=== PATIENT | male | born 1960 | race Caucasian/White ===

== ENCOUNTER 2022-06-27 14:09 | Outpatient (CLI) | payer OTHER, SELFPAY ==
--- NOTE | ~2022-06-27 | MR_ITS ---
EXAMINATION: MR cervical spine wo con DATE: 06/27/2022 14:49 INDICATION: Bilateral numbness and tingling in the arms and hands. TECHNIQUE: Magnetic resonance imaging (MRI) of the cervical spine was performed without intravenous c ontrast. Sequences included sagittal T2-weighted FSE, sagittal T2-weighted FS FSE, sagittal T1-weight ed FSE, axial MERGE, and axial T2-weighted FSE. COMPARISON: Cervical spine MRI 12/08/2017 FINDINGS: There is 9 degrees dextrocurvature of cervicothoracic spine. Vertebral body heights are nor mal. There is mildly decreased disc height at C5-C6 and C6-C7. The spinal cord signal intensity is no rmal. The following disc levels are specifically discussed: C2-C3: The disc does not extend beyond the endplate margin. There is mild left uncovertebral joint os teoarthritis. There is moderate bilateral facet joint osteoarthritis. There is mild left neural cherry inal stenosis. There is no central canal stenosis. C3-C4: The disc does not extend beyond the endplate margin. There is mild bilateral uncovertebral kendra nt osteoarthritis. There is severe bilateral facet joint osteoarthritis. There is mild bilateral neur al foraminal stenosis. There is no central canal stenosis. C4-C5: The disc is bulging. There is mild bilateral uncovertebral joint osteoarthritis. There is cassi re bilateral facet joint osteoarthritis. There is mild bilateral neural foraminal stenosis. There is no central canal stenosis. C5-C6: The disc is bulging. There is severe bilateral uncovertebral joint osteoarthritis. There is mo derate bilateral facet joint osteoarthritis. There is moderate bilateral neural foraminal stenosis. T here is mild central canal stenosis. C6-C7: The disc is bulging. There is severe bilateral uncovertebral joint osteoarthritis. There is mo derate right and severe left facet joint osteoarthritis. There is mild right and moderate left neural foraminal stenosis. There is mild central canal stenosis. C7-T1: The disc does not extend beyond the endplate margin. There is no uncovertebral joint osteoarth ritis. There is severe bilateral facet joint osteoarthritis. There is mild bilateral neural foraminal stenosis. There is no central canal stenosis. IMPRESSION: 1. Moderate cervical spondylosis, stable from 12/08/2017. Reviewed, dictated and finalized at location A. ENTATIVE MAINTENANCE TECHNICIAN
--- NOTE | ~2022-06-27 | XR_ITS ---
EXAMINATION: XR chest 2V 06/27/2022 14:55 INDICATION: Solitary pulmonary nodule PROCEDURE: 2 view chest COMPARISON: No prior studies for comparison. FINDINGS: The lungs are clear. The cardiomediastinal silhouette is within normal limits. There are no pleural effusions. There is no pneumothorax suspected. IMPRESSION: 1: NO ACUTE CARDIOPULMONARY DISEASE. Reviewed, dictated and finalized at location B. ORICAL ARCHEOLOGIST
== END 2022-06-27 14:10 | disposition home or self-care (01) ==
LOC: ANHIMG 14:12
PROVIDERS: PCP Family Medicine; Visit Provider Physician Assistant Medical
DX: R91.1 Solitary pulmonary nodule (principal); M50.30 Other cervical disc degeneration, unspecified cervical region; M47.22 Other spondylosis with radiculopathy, cervical region
CPT/HCPCS: 71046; 72141

== ENCOUNTER 2023-01-11 10:15 | Emergency (ER) | payer OTHER, SELFPAY ==
[2023-01-11 11:11] VITALS: BP 127/89; PULSE 65; RESP 18; TEMP 36.1; O2SAT 99
--- NOTE | 2023-01-11 11:22 | ED.GENADULT ---
HPI - General Adult General Chief complaint: Upper Respiratory Infection Stated complaint: congestion Time Seen by Provider: 01/11/23 11:23 Source: patient Mode of arrival: ambulatory Limitations: no limitations History of Present Illness HPI narrative: 62-year-old male patient presents to the [facility] with complaints of sinus congestion and facial pain for the past 2-3 days. Patient states symptoms started shortly after mowing grass about 2-3 days ago. Patient states he does have little bit of a runny nose denies any fevers, body aches or chills. Denies any coughing, sore throat or shortness of breath. Patient states he did take some [id number] Mucinex for symptoms. Related Data Allergies Allergy/AdvReac Type Severity Reaction Status Date / Time smallpox vaccine,live Allergy Severe Anaphylaxis Verified 01/11/23 11:05 Penicillins Allergy Unknown Unknown Verified 01/11/23 11:05 Sulfa (Sulfonamide AdvReac Mild Hives Verified 01/11/23 11:06 Antibiotics) Review of Systems Review of Systems: CONSTITUTIONAL: Denies fever, chills, or sweats. EYES: Denies visual changes, redness, or discharge. ENT: Positive rhinorrhea, congestion, denies sore throat, or otalgia. positive facial pain CARDIOVASCULAR: Denies chest pain, palpitations, or edema. RESPIRATORY: Denies cough or dyspnea. GASTROINTESTINAL: Denies abdominal pain, nausea, vomiting, or diarrhea. GENITOURINARY: Denies dysuria or hematuria. SKIN: Denies rash or itching. MUSCULOSKELETAL: Denies back pain, joint pain, or myalgia. NEUROLOGIC: Denies headache, numbness, or weakness. PSYCHIATRIC: Denies anxiety or depression. [facility] Past Medical History Medical History Allergies Arthritis Bilateral knee pain Family history of colon cancer Hyperlipidemia Hyponatremia Insect bite Left knee DJD Low blood pressure Low magnesium level Lung nodule Right knee DJD Right knee pain Weight gain Surgical History Surgical History Cyst back H/O colonoscopy History of cholecystectomy Family History Family History Father Heart disease Cerebrovascular accident Carcinoma of colon Mother Depression Heart disease Grandparent Liver cancer Social History Social History Smoking status: Former smoker Second hand tobacco smoke exposure: No Smoking end date: 05/04/07 Alcohol intake: current Drinks per week: 12 Alcohol use details: beer, per month. Substance use: never Substance use type: does not use Lack of Transportation: No Lack of Food: Never True Current Housing: I Have Housing Concerned About Future Housing: No Difficulty Paying Gas/Electric Bills: No Difficulty Paying for Meds: No Currently Unemployed: No Education: Trade/Vocational Certificate Difficulty w/ Childcare or Family Care: No Living arrangements: with family Occupation/Education: occupation Additional occupation/education comments: [employer] Gender identity (if verbalized by the patient): Male Sexual Orientation (if Verbalized by the Patient): Straight or Heterosexual Spiritual care concerns: No Agree to blood products: Yes Comments At the time of my signature I agree with nursing past medical history, surgical, social, and family history. There is no relevant family history pertinent to the presenting complaint. Exam Narrative: GENERAL: Well-appearing, well-nourished, and in no acute distress. HEAD: Normocephalic, atraumatic. EYES: PERRLA and EOMI. ENT: Nares with erythema edema noted bilaterally, no rhinorrhea or epistaxis. Mucous membranes moist. posterior pharynx with no erythema, tonsillar enlargement, exudates or lesions present. Bilateral TMs are clear no erythema provides the canal. NECK: Supple. No lymphadenopat
== END 2023-01-11 11:45 | disposition home or self-care (01) ==
PROVIDERS: Emergency Provider Nurse Practitioner Family; PCP Family Medicine
DX: J01.10 Acute frontal sinusitis, unspecified (principal); T78.40XA Allergy, unspecified, initial encounter; Z87.891 Personal history of nicotine dependence
CPT/HCPCS: 99213; G0463